=== PATIENT | female | born 1950 | race Caucasian/White ===

== ENCOUNTER 2016-11-12 06:10 | Day surgery (SDC) ==
[2016-11-12] MEDS ORDERED: LIDOCAINE 1% 20 ML MDV ID ONE (07:10)
[2016-11-12] MEDS ORDERED: LIDOCAINE 1% 20 ML MDV ONE (07:10)
[2016-11-12] MEDS ORDERED: DIPRIVAN 20 ML VIAL IVP ONE (08:20)
[2016-11-12] MEDS ORDERED: VERSED ONE (08:20)
[2016-11-12 10:20] VITALS: BP 130/69; TEMP 97.3
--- NOTE | 2016-11-12 14:45 | OP ---
INDICATIONS FOR PROCEDURE: 65-year-old female presents for first ever screening colonoscopy. MEDICATIONS: SEE ANESTHESIA NOTES. PROCEDURE: COLONOSCOPY, SNARE POLYPECTOMY. REPORT: The risks, benefits, alternatives and limitations were discussed in detail with the patient. Informed consent was obtained. After adequate sedation was achieved, a digital rectal exam revealed good tone, no masses. The colonoscope was introduced into the rectum and advanced under direct visual guidance to the cecum. The cecum was identified by the appendiceal orifice and IC valve. I then slowly withdrew the scope in a circumferential manner examining the mucosa quite carefully. I looked on the proximal and distal side of folds and flexures as best as possible. I was able to retroflex the scope in the right colon and left colon to increase visualization. At the mid ascending colon, there was a small 4 to 5 mm polyp that I removed by snare technique. This was not retrieved. In the proximal transverse area there was a 6 to 7 mm semi sessile polyp that I removed by snare technique. It was retrieved. There was mild to moderate diverticulosis scattered throughout the sigmoid area. In the rectum there is a 4 mm sessile polyp that I removed by snare technique. It was retrieved. No other abnormalities were noted including on retroflex view of the anal canal. The prep was good. The withdrawal time was 12 minutes and 10 seconds. The patient tolerated the procedure well with stable vital signs and pulse oximetry throughout. IMPRESSION: 1. THREE (3) POLYPS REMOVED. 2. DIVERTICULOSIS. RECOMMENDATIONS: 1. High fiber diet. 2. Office visit as needed. 3. Await pathology results. If there are adenomatous changes, I recommend repeat colonoscopy examination again in 3 years if she is clinically well. Otherwise, if there are no adenomatous changes, then suggest repeat colonoscopy examination again in 5 years if she is well; sooner if she would have any signs or symptoms to indicate otherwise. CC: DR. FORTINO RANGEL
== END 2016-11-12 09:55 | disposition home or self-care (01) ==
LOC: SURG 06:10
PROVIDERS: ATTEND Internal Medicine Gastroenterology
DX: Z12.11 Encounter for screening for malignant neoplasm of colon (principal); D12.3 Benign neoplasm of transverse colon; D12.7 Benign neoplasm of rectosigmoid junction; K63.5 Polyp of colon; K57.30 Diverticulosis of large intestine without perforation or abscess without bleeding

== ENCOUNTER 2016-12-26 12:53 | Outpatient (CLI) ==
--- NOTE | 2016-12-26 13:45 | CT ---
EXAM: CT chest without contrast HISTORY: Pulmonary nodule follow-up COMPARISON: The chest 06/26/2016 and multiple priors dating back to 03/06/2015 TECHNIQUE: Serial axial images of the chest were obtained from the lung apices to the upper abdomen without contrast. These were viewed in multiple planes. FINDINGS: The thyroid is normal. The visualized vessels demonstrate mild ascending aortic ectasia without aneurysm or stenosis. The heart is normal in size without pericardial effusion. There are no pathologically enlarged mediastinal or hilar lymph nodes. Calcified left hilar lymph nodes are pr esent. There is no pneumothorax or pleural effusion. The right upper lobe pulmonary nodule measuring 1 cm in diameter which is not significantly changed compared back to 12/06/2014. There is minimal left b asilar atelectasis. There is a calcified granuloma in the left lower lobe. No additional new conso lidation, nodule or mass is identified. The ground-glass and nodularity in the left lower lobe desc ribed on prior examination is in the region of previously described bronchiectasis likely representi ng chronic changes with no CT evidence of neoplasm. There is a small hiatal hernia. There is an exophytic low attenuation lesion of the left kidney not significantly changed since 2015. The osseous structures demonstrate degenerative disease. IMPRESSION: 1. Right upper lobe pulmonary nodule has been present since 2015 and is unchanged consistent with b enign nodule. 2. Ground-glass in the left lower lobe has not significantly changed in comparison to prior to CTs and an area of bronchiectasis with noted in this region on CT 12/06/2014. This likely represents ch ronic mucous plugging. No additional follow-up is indicated by imaging. 3. Stable ascending aortic ectasia. 4. Stable low attenuation lesion of the left kidney and small hiatal hernia, stable since 2014.
== END 2016-12-26 12:54 | disposition home or self-care (01) ==
LOC: RAD 12:53
PROVIDERS: ATTEND Internal Medicine Pulmonary Disease
DX: R91.1 Solitary pulmonary nodule (principal)

== ENCOUNTER 2017-03-25 16:05 | Outpatient (CLI) | payer OTHER ==
[2017-03-25 16:56] LABS: BASOPHILS # (AUTO) 0.1 K/uL (0-0.2); BASOPHILS % (AUTO) 0.5 % (0.0-3.0); EOSINOPHILS # (AUTO) 0.3 K/ul (0.0-0.7); EOSINOPHILS % (AUTO) 3.2 % (0.0-7.0); HEMATOCRIT 37.6 % (37.0-47.0); HEMOGLOBIN 11.9 g/dl (12.0-16.0); IMMATURE GRANULOCYTE % (AUTO) 0.5 % (0.0-5.0); LYMPHOCYTES # (AUTO) 3.5 K/uL (0.60-3.4); LYMPHOCYTES % (AUTO) 36.4 (10.0-50.0); MEAN CORPUSCULAR HEMOGLOBIN 26.2 pg (27.0-31.0); MEAN CORPUSCULAR HGB CONC 31.6 (31.8-35.4); MEAN CORPUSCULAR VOLUME 82.8 fl (81.0-99.0); MONOCYTES # (AUTO) 0.6 K/uL (0.4-2.0); MONOCYTES % (AUTO) 6.1 (0-10); NEUTROPHILS # (AUTO) 5.2 K/ul (2.0-6.9); NEUTROPHILS % (AUTO) 53.3; PLATELET COUNT 345 10^3/uL (140-440); RED BLOOD COUNT 4.54 10^6/ul (4.20-5.40); WHITE BLOOD COUNT 9.67 K/ul (4.6-10.2)
[2017-03-25 17:28] LABS: ALBUMIN 3.9 g/dL (3.4-5.0); ALBUMIN/GLOBULIN RATIO 1.18; BILIRUBIN,TOTAL 0.38 mg/dL (0.00-1.20); BUN/CREATININE RATIO 16.09; CALCIUM 9.7 mg/dL (8.2-10.2); CHOL/HDL RATIO 3.8 (4.5-5.5); CREATININE 0.87 mg/dL (0.60-1.30); TOTAL PROTEIN 7.2 g/dL (5.8-8.1)
== END 2017-03-25 16:06 | disposition home or self-care (01) ==
LOC: LAB 16:05
PROVIDERS: ATTEND Emergency Medicine
DX: I10 Essential (primary) hypertension (principal); J44.9 Chronic obstructive pulmonary disease, unspecified; E66.9 Obesity, unspecified
CPT/HCPCS: 36415; 80053; 80061; 84443; 85025

== ENCOUNTER 2017-10-15 13:19 | Outpatient (CLI) | END 2017-10-15 13:20 | disposition home or self-care (01) | LOC: LAB 13:19 | PROVIDERS: ATTEND Emergency Medicine | DX: I10 Essential (primary) hypertension (principal); J44.9 Chronic obstructive pulmonary disease, unspecified; E66.9 Obesity, unspecified | CPT/HCPCS: 36415; 80053; 80061; 84443; 85025 ==

== ENCOUNTER 2017-11-10 14:08 | Outpatient (CLI) | END 2017-11-10 14:09 | disposition home or self-care (01) | LOC: LAB 14:08 | PROVIDERS: ATTEND Emergency Medicine | DX: I10 Essential (primary) hypertension (principal); E66.9 Obesity, unspecified | CPT/HCPCS: 36415; 80053 ==

== ENCOUNTER 2018-04-23 12:03 | Outpatient (CLI) | payer OTHER ==
--- NOTE | 2018-04-23 12:34 | CT ---
EXAM: CT of the abdomen pelvis without contrast History: Left lower quadrant abdominal pain. Comparison: CT abdomen pelvis 02/06/2016 Technique: Multiplanar CT images through the abdomen pelvis were obtained without the administration of IV contrast Findings: New cluster of nodules seen within the left lower lobe. The largest measuring 1.1 cm. No acute osseous abnormalities. Severe degenerative disc disease at T10-T11. Moderate to severe degene rative disc disease within the lumbar spine. Calcified granulomas within the spleen. No discrete gallstones identified by CT. No focal liver les ions. Small to moderate hiatal hernia. No peripancreatic inflammation. Adrenal glands are unremark able. No change in the left renal cyst. No renal stones and no hydronephrosis. The appendix is not dilated or inflamed. There is an appendicolith versus old inspissated secretions. No bladder wall thickening. Bladder is low lying within the pelvis. Uterus is not seen. Colonic diverticulosis. T here is moderate inflammation seen adjacent to a short segment of the descending colon with associate d colonic wall thickening. No well-formed fluid collections identified. No free air. Impression: 1. Acute diverticulitis of the descending colon. No abscess and no free air. 2. Small to moderate hiatal hernia. 3. Simple left renal cyst. 4. New cluster of nodules in the left lower lobe could be infectious/inflammatory or neoplastic. Re commend follow-up chest CT in 3-6 months. 5. Other findings as detailed above.
[2018-04-23 16:50] VITALS: BMI 30.4
== END 2018-04-23 12:04 | disposition home or self-care (01) ==
LOC: RAD 12:03
PROVIDERS: ATTEND Emergency Medicine
DX: R10.32 Left lower quadrant pain (principal)
CPT/HCPCS: 36415; 80053; 85025

== ENCOUNTER 2018-04-23 15:40 | Inpatient (IN) ==
[2018-04-23] MEDS ORDERED: TYLENOL PO PRN (16:40)
[2018-04-23] MEDS ORDERED: ZOFRAN 4 MG/2 ML IVP PRN (16:42)
[2018-04-23] MEDS ORDERED: MORPHINE 2 MG/ML SYRINGE IVP PRN (16:42)
[2018-04-23 16:50] VITALS: BMI 30.4
[2018-04-23] MEDS: LOVENOX SUBCUT SCH (17:01)
[2018-04-23] MEDS: SODIUM CHLORIDE 1,000 ML IV SCH (17:39)
[2018-04-23] MEDS: ROCEPHIN 1 GM in SODIUM CHLORIDE 50 ML IV SCH (17:39)
[2018-04-23] MEDS: ALBUTEROL 0.042% NEB NEB SCH (18:00)
[2018-04-23] MEDS: FLAGYL 500 MG/100 ML 500 MG in PREMIX 100 ML NS 1 BAG IV SCH ×2 (18:27→22:19)
[2018-04-23] MEDS ORDERED: MAGNESIUM CITRATE 500 MG PO SCH (21:00)
[2018-04-23] MEDS: MAG-OX PO SCH (21:12)
[2018-04-23] MEDS: SYMBICORT 80-4.5 MCG INHALER IH SCH (21:13)
[2018-04-24] MEDS: FLAGYL 500 MG/100 ML 500 MG in PREMIX 100 ML NS 1 BAG IV SCH ×3 (04:49→20:38)
[2018-04-24] MEDS: ALBUTEROL 0.042% NEB NEB SCH ×2 (05:35→17:38)
[2018-04-24] MEDS: ROCEPHIN 1 GM in SODIUM CHLORIDE 50 ML IV SCH (08:56)
[2018-04-24] MEDS: SODIUM CHLORIDE 1,000 ML IV SCH ×2 (08:56)
[2018-04-24] MEDS: MAG-OX PO SCH ×2 (08:57→20:38)
[2018-04-24] MEDS: POTASSIUM GLUCONATE 99 MG PO SCH (08:58)
[2018-04-24] MEDS: LOVENOX SUBCUT SCH (08:58)
[2018-04-24] MEDS: SYMBICORT 80-4.5 MCG INHALER IH SCH ×2 (08:59→20:38)
[2018-04-24] MEDS: ZESTRIL PO SCH (08:59)
[2018-04-25] MEDS: FLAGYL 500 MG/100 ML 500 MG in PREMIX 100 ML NS 1 BAG IV SCH ×3 (04:14→22:10)
[2018-04-25] MEDS: SODIUM CHLORIDE 1,000 ML IV SCH ×2 (04:15→22:12)
[2018-04-25] MEDS: ALBUTEROL 0.042% NEB NEB SCH ×2 (05:08→17:31)
[2018-04-25] MEDS: LOVENOX SUBCUT SCH (08:54)
[2018-04-25] MEDS: MAG-OX PO SCH ×2 (08:55→22:10)
[2018-04-25] MEDS: POTASSIUM GLUCONATE 99 MG PO SCH (08:55)
[2018-04-25] MEDS: ROCEPHIN 1 GM in SODIUM CHLORIDE 50 ML IV SCH (08:55)
[2018-04-25] MEDS: ZESTRIL PO SCH (08:56)
[2018-04-25] MEDS: SYMBICORT 80-4.5 MCG INHALER IH SCH ×2 (08:56→22:12)
--- NOTE | 2018-04-25 10:24 | CT ---
EXAM: CT scan thorax without contrast HISTORY: Pain COMPARISON: CT scan thorax of 12/26/2016 FINDINGS: Contiguous axial images obtained from thoracic inlet through the hemidiaphragms without co ntrast utilizing 5-mm collimation. Sagittal and coronal reconstructions were imaged and reviewed.. The thoracic inlet is unremarkable. The ascending aorta is ectatic measuring 4.1 cm. The heart is n ormal in size without pericardial effusion. Calcified lymph nodes are seen within the left hilum.. There is a stable 10 mm nodule within the right upper lobe. Scarring is seen within the lingula.. T here is minimal atelectasis at the left lung base.. There is a hiatal hernia.. Bone windows reveal moderately severe degenerative changes within the lower thoracic spine. IMPRESSION: Ectatic ascending aorta. Benign granulomatous changes. Stable right upper lobe nodule. Stable scarring inferior lingular segment. Atelectasis left lung base.
--- NOTE | 2018-04-25 10:33 | CT ---
EXAM: CT scan abdomen pelvis without contrast HISTORY: Abdominal pain COMPARISON: CT scan abdomen pelvis 04/23/2018 FINDINGS: Contiguous axial images were obtained through the abdomen and pelvis without contrast util izing 3-mm collimation... Sagittal coronal reconstructions were imaged and reviewed.. There is mode rate sized hiatal hernia. There are benign granulomatous changes in the spleen. The liver pancreas a nd adrenal glands have normal unenhanced CT appearance. There is exophytic cyst upper pole left kidn ey. Right kidney is unremarkable.. The abdominal aorta is normal in course and caliber. Dense mate rial is seen within normal appendix. Persistent but improved diverticulitis is seen involving the aidan cending colon. There is no free fluid or abscess. Degenerative changes noted throughout the lumbar s pine.1 IMPRESSION: Persistent but improved diverticulitis involving the left colon.. Hiatal hernia.
[2018-04-26] MEDS: ALBUTEROL 0.042% NEB NEB SCH (05:15)
[2018-04-26] MEDS: FLAGYL 500 MG/100 ML 500 MG in PREMIX 100 ML NS 1 BAG IV SCH (05:23)
[2018-04-26] MEDS: SODIUM CHLORIDE 1,000 ML IV SCH (08:36)
[2018-04-26] MEDS: MAG-OX PO SCH (08:38)
[2018-04-26] MEDS: ROCEPHIN 1 GM in SODIUM CHLORIDE 50 ML IV SCH (08:38)
[2018-04-26] MEDS: LOVENOX SUBCUT SCH (08:42)
[2018-04-26] MEDS: SYMBICORT 80-4.5 MCG INHALER IH SCH (08:42)
[2018-04-26] MEDS: ZESTRIL PO SCH (08:43)
[2018-04-26] MEDS: POTASSIUM GLUCONATE 99 MG PO SCH (08:44)
[2018-04-26 10:01] VITALS: BP 121/77; TEMP 98.9
--- NOTE | 2018-04-26 11:54 | PCM.HOSP ---
- Initial Hospital Care [id number] 70 Minutes Bedside ([id number]): 04/23 - Subsequent Care [id number] 35 Minutes per Day ([id number]): 04/24. 04/25 - Hospital Discharge [id number] More than 30 Minutes ([id number]): 04/27
--- NOTE | 2018-04-28 11:26 | DS ---
DATE OF SERVICE: 04/26/18 FINAL DIAGNOSIS: 1. Acute descending colon 2. Diverticulitis 3. Leukocytosis 4. Anemia which is stable 5. History of hypertension 6. Asthma 7. Left lobar infiltrate per CAT scan 8. Osteoarthritis 9. Hysterectomy 10.Bilateral thumb joint replacements 11.Raynauds disease 12.Hypertension 13.COPD DISCHARGE INSTRUCTIONS: Discharge the patient home. Please continue to follow the soft diet for at least 3-4 days. Followup in the [facility] on . Continue the rest of the home medication. MEDICATIONS AT DISCHARGE: Lisinopril Albuterol Symbicort Mag Citrate Potassium Turmeric NEW PRESCRIPTIONS: Augmentin 875 Q 8 hours for 7 more days. Flagyl 500mg Q 8 hours for 7 more days. DIET INSTRUCTIONS: Diverticulitis diet been discussed. ACTIVITY: As tolerated DISEASE SPECIFIC EDUCATION: Diverticulitis and diet been discussed; no seeds and no nuts. Soft diet for one more week HOSPITAL COURSE: Marybeth Kramer was seen initially as outpatient as patient was having the left sided abdominal pain and left flank pain and fever. Outpatient blood work done which showed WBC of almost 13,000 and CAT scan showed the left descending colon and diverticulitis. At that time the patient was directly admitted to the hospital and started on put on NPO and started on the Flagyl and Rocephin and Demerol for the pain. Given treatment she tolerated well. Hgb was steady. Morphine was given for the pain. Lovenox was given for the DVT prophylaxis and IV fluids. Gradually the patient started feeling better and did not have any fever or chills. In review of the CAT scan findings we did do the CT chest which is stable scarring inferior lingular segment, atelectasis left lung base. Did not show any mass. CT of abdomen and pelvis did show better improvement of the left side descending colon, diverticulitis. The patient's diet been improved to the soft diet which she did tolerate well. She is has been up and about walking and did not have any problems. At that time the patient being discharged home today. TIME SPENT: MORE THAN 65 MINUTES MTDD
--- NOTE | 2018-04-28 11:36 | PN ---
DATE OF SERVICE: 04/24/18 SUBJECTIVE: The patient was admitted with acute descending diverticulitis. WBC is better from 12,000 to 8,000. Hgb dropped to 11.2. Sodium and potassium are normal. Pain is somewhat better, passing gas. REVIEW OF SYSTEMS: CONSTITUTIONAL: No fever, no chills. HEENT: Normal. ENDOCRINE: No weight gain, no weight loss. CVS: No angina symptoms. No CHF symptoms. No palpitations. No atypical chest pain for CAD. No shortness of breath. No PND, no orthopnea. RESPIRATORY: No cough, no hemoptysis. GI: No nausea, no vomiting. No abdominal pain. : No hematuria. No polyuria. MUSCULOSKELETAL: No joint swelling. PSYCHIATRIC: Not anxious. No depression. No suicidal thoughts. No homicidal thoughts. SKIN: Intact. No rash. PHYSICAL EXAMINATION: V/S: Blood pressure 135/91, respiratory rate 18, heart rate 72, temperature 97.9 with saturation 98% HEENT: Normocephalic, atraumatic. Mucosa dry. Pallor positive. No icterus. NECK: Supple. No JVD, no carotid bruit. No lymphadenopathy. LUNGS: Clear to auscultation. No rales or rhonchi. HEART: S1, S2 normal. No S3. No murmur, gallop or regurgitation. ABDOMEN: Soft, nontender. Bowel sounds sluggish. No rigidity. No rebound. No CVA tenderness. Left lower quadrant tenderness and guarding is present. EXTREMITIES: No cyanosis, clubbing or pedal edema. MUSCULOSKELETAL: No joint swelling. NEUROLOGIC: Awake, alert. No focal deficit. LYMPHATIC: No lymph nodes palpable. SKIN: Intact. LABS: Sodium 141, potassium 4.1, chloride 108, bicarb 24, BUN 12, creatinine 0.71, glucose 94.WBC 8.95, hgb 11.2, hct 36.5, plt count 268. ASSESSMENT: 1. Acute descending sigmoid diverticulitis 2. Anemia most likely from the hemodilution 3. Diverticulosis 4. Hysterectomy 5. Osteoarthritis PLAN: 1. Will get CT 2. Continue Rocephin and Flagyl 3. Breathing treatments 4. Morphine for the pain 5. IV fluids 6. Clear liquid diet 7. The patient's CAT scan did show left lower lobe infiltrate questionable for malignancy do the CAT scan once the diverticulitis is resolving. TIME SPENT: More than 35 minutes MTDD
--- NOTE | 2018-04-28 12:38 | PN ---
DATE OF SERVICE: 04/25/18 SUBJECTIVE: The patient was admitted with acute left sided descending colon diverticulitis with changes in the left lower lobe of the liver. The patient is not having any fever. Still has some abdominal pain and nausea. Able to keep the soft diet well. REVIEW OF SYSTEMS: CONSTITUTIONAL: No fever, no chills. HEENT: Normal. ENDOCRINE: No weight gain, no weight loss. CVS: No angina symptoms. No CHF symptoms. No palpitations. No atypical chest pain for CAD. No shortness of breath. No PND, no orthopnea. RESPIRATORY: No cough, no hemoptysis. GI: No nausea, no vomiting. No abdominal pain. : No hematuria. No polyuria. MUSCULOSKELETAL: No joint swelling. PSYCHIATRIC: Not anxious. No depression. No suicidal thoughts. No homicidal thoughts. SKIN: Intact. No rash. PHYSICAL EXAMINATION: V/S: Blood pressure 134/83, respiratory rate 16, heart rate 65, temperature 97.8 with saturation 97%. HEENT: Normocephalic, atraumatic. Mucosa dry. Pallor positive. No icterus. NECK: Supple. No JVD, no carotid bruit. No lymphadenopathy. LUNGS: Decreased and clear to auscultation. Basilar crackles on the left side. No rales or rhonchi. HEART: S1, S2 normal. No S3. No murmur, gallop or regurgitation. ABDOMEN: Soft, discomfort in the left lower quadrant and left flank area. Bowel sounds active. No rigidity. No rebound or guarding. No CVA tenderness. EXTREMITIES: No cyanosis, clubbing or pedal edema. MUSCULOSKELETAL: No joint swelling. NEUROLOGIC: Awake, alert. No focal deficit. LYMPHATIC: No lymph nodes palpable. SKIN: Intact. LABS: WBC 6.64, hgb 11.4, hct 36.4, plt count 275, sodium 141, potassium 4.1, chloride 108, bicarb 23, BUN 9, creatinine 0.74 and glucose 81. ASSESSMENT: 1. Acute diverticulitis of the descending colon. No abscess 2. Left lower lobe cluster nodule will further evaluate 3. Small to moderate hiatal hernia 4. Simple left renal cyst 5. Hemodilution 6. Anemia 7. Hypertension 8. Diverticulosis 9. Osteoarthritis PLAN: 1. Continue with IV fluids 2. Rocephin 3. Flagyl 4. Lovenox which patient is refusing 5. IV fluids 6. CT of the abdomen and pelvis and CT of the chest for left lower lobe infiltrate TIME SPENT: More than 35 minutes MTDD
== END 2018-04-26 12:32 | disposition home or self-care (01) | DRG 392 ==
LOC: MEDSURG B 15:40
PROVIDERS: ADMIT Emergency Medicine; ATTEND Emergency Medicine
DX: R10.32 Left lower quadrant pain (principal); D72.829 Elevated white blood cell count, unspecified; D64.9 Anemia, unspecified; I10 Essential (primary) hypertension; J45.909 Unspecified asthma, uncomplicated; J44.9 Chronic obstructive pulmonary disease, unspecified; I73.00 Raynaud's syndrome without gangrene; M19.90 Unspecified osteoarthritis, unspecified site
CPT/HCPCS: 36415; 80053; 81001; 85025; 87040; 87086

== ENCOUNTER 2018-10-30 07:40 | Outpatient (CLI) | payer OTHER ==
--- NOTE | 2018-10-30 12:42 | CT ---
EXAM: CT left humerus HISTORY: Upper arm pain. TECHNIQUE: CT left humerus without contrast. Multiplanar images provided. FINDINGS: No fracture is identified. There is mild osteoarthritis of the acromioclavicular and kaitlynn ohumeral joints. No joint subluxation, separation or dislocation. There is no joint effusion. The elbow joints are within normal limits. The muscular and subcutaneous tissues are normal. There is n o axillary mass or fluid collection. IMPRESSION: 1. Osteoarthritis. Otherwise within normal limits by CT. If concern is persistent, consider correl ation with MRI.
== END 2018-10-30 07:41 | disposition home or self-care (01) ==
LOC: RAD 07:40
PROVIDERS: ATTEND Nurse Practitioner Family
DX: M79.622 Pain in left upper arm (principal); S49.92XA Unspecified injury of left shoulder and upper arm, initial encounter

== ENCOUNTER 2018-11-30 07:07 | Emergency (ER) ==
[2018-11-30 07:13] VITALS: BP 129/81; TEMP 97.6; BMI 30.5
--- NOTE | 2018-11-30 07:32 | ED.PDOC ---
General ED Provider: Dr. CHIDI SHEPPARD MD Chief Complaint: Toe Pain/Injury Stated Complaint: [id number] lb bucket on toes Time Seen by Physician: 07:30 Mode of Arrival: Wheelchair Information Source: Patient Exam Limitations: No limitations Primary Care Provider: ROSITA GUAJARDO Nursing and Triage Documentation Reviewed and Agree: Yes Does patient meet sepsis criteria?: No If yes, has appropriate treatment been initiated?: Yes System Inflammatory Response Syndrome: Not Applicable Sepsis Protocol: For patient's 13 years and over: Temp is 96.8 and below OR 101 and greater Pulse >90 BPM Resp >20/minute Acutely Altered Mental Status Are patient's symptoms suggestive of a new infection, such as: -Pneumonia -Skin, Soft Tissue -Endocarditis -UTI -Bone, Joint Infection -Implantable Device -Acute Abdominal Infection -Wound Infection -Meningitis -Blood Stream Catheter Infection -Unknown Review of Systems - Review Of Systems Constitutional: Reports: No symptoms Eyes: Reports: No symptoms Ears, Nose, Mouth, Throat: Reports: No symptoms Respiratory: Reports: No symptoms Cardiac: Reports: No symptoms GI: Reports: No symptoms : Reports: No symptoms Musculoskeletal: Reports: Joint pain Skin: Reports: No symptoms Neurological: Reports: No symptoms Endocrine: Reports: No symptoms Hematologic/Lymphatic: Reports: No symptoms All Other Systems: Reviewed and Negative Past Medical History - Past Medical History Previously Healthy: Yes Endocrine: Reports: None Cardiovascular: Reports: None Respiratory: Reports: None Hematological: Reports: None Gastrointestinal: Reports: None Genitourinary: Reports: None Neuro/Psych: Reports: None Musculoskeletal: Reports: None Cancer: Reports: None Last Menstrual Period: n/a - Surgical History General Surgical History: Reports: None - Family History Family History: Reports: None - Social History Smoking Status: Former smoker Hx Substance Use: No Alcohol Screening: Occasionally Physical Exam - Physical Exam Appearance: Well-appearing, No pain distress, Well-nourished Ill-appearing: None Pain Distress: Moderate Eyes: BOBBI, EOMI, Conjunctiva clear ENT: Ears normal Neck: Supple Respiratory: Airway patent, Breath sounds clear, Breath sounds equal, Respirations nonlabored Cardiovascular: RRR GI/: Soft Musculoskeletal: No edema, Limited ROM (right 2nd toe) Skin: Warm, Dry, Normal color Neurological: Sensation intact, Motor intact, Reflexes intact, Cranial nerves intact, Alert, Oriented Psychiatric: Affect appropriate, Anxious Interpretation - Radiology Interpretation Radiology Results: Negative Critical Care Note - Critical Care Note Total Time (mins): 0 Course - Course Orders, Labs, Meds: Orders Category Date Time Status Ketorolac Tromethamine [Toradol] MEDS 11/30/18 07:32 Discontinued 60 mg IM ONCE STA TOE(S), RIGHT MIN 2V Stat RADS 11/30/18 07:32 Completed Medications Discontinued Medications Generic Name Dose Route Start Last Admin Trade Name Freq PRN Reason Stop Dose Admin Ketorolac Tromethamine 60 mg 11/30/18 07:32 11/30/18 07:43 Toradol IM 11/30/18 07:33 60 mg ONCE STA Administration Vital Signs: Temp Pulse Resp BP Pulse Ox 11/30/18 07:09 97.6 F 74 16 129/81 96 Departure - Departure Time of Disposition: 08:15 Disposition: HOME SELF-CARE Discharge Problem: Contusion of toe of right foot Instructions: Foot Contusion (ED) Condition: Good Pt referred to PMD for follow-up: Yes IPMP verified?: No Allergies/Adverse Reactions: Allergies No Known Allergies Allergy (Verified 11/30/18 07:13) Home Medications: Ambulatory Orders Albuterol Sulfate 0.042% Neb [Albuterol 0.042% Neb] 1 vial NEB RTBID 11/12/16 Albuterol Sulfate [Ventolin Hfa] 8 gm IH PRN PRN 11/12/16 Budesonide/Formoterol Fumarate [Symbicort 80-4.5 Mcg Inhaler] 2 puff IH BID 04/21 Magnesium Citrate 500 mg PO BID 01/19/18 Turmeric/Turmeric Root Extract [Turmeric 500 mg Capsule] 2 each PO BID 01/19/18 Potassium Gluconate [Potassium] 99 mg PO DAILY 04/23/18 Transfer Form Completed: No Disposition Discussed With: Patient
[2018-11-30] MEDS: TORADOL IM STA (07:43)
--- NOTE | 2018-11-30 07:56 | DI ---
Exam: Three views of the right toes. Comparison: None available. Reason for exam: Trauma. FINDINGS: No acute fracture or malalignment. The joint spaces appear well maintained. No unexplain ed calcific soft tissue density or radiopaque retained foreign body. Impression: No acute fracture or malalignment in the right toes.
== END 2018-11-30 08:33 | disposition home or self-care (01) ==
LOC: ED 07:07
DX: M25.571 Pain in right ankle and joints of right foot (principal); S90.121A Contusion of right lesser toe(s) without damage to nail, initial encounter
CPT/HCPCS: 96372; 99283

== ENCOUNTER 2019-03-16 10:51 | Outpatient (CLI) | END 2019-03-16 10:52 | disposition home or self-care (01) | LOC: RHC-LAB 10:51 | PROVIDERS: ATTEND Nurse Practitioner Family | DX: J02.9 Acute pharyngitis, unspecified (principal) | CPT/HCPCS: 87651 ==

== ENCOUNTER 2023-06-10 17:50 | Inpatient (IN) ==
--- NOTE | 2023-06-10 17:58 | ED.PDOC ---
General ED Provider: Dr. DANIELLE KEENE MD Chief Complaint: Abdominal Pain Stated Complaint: LLQ abdominal pain Time Seen by Provider: 06/10/23 17:57 Mode of Arrival: Walk-In Information Source: Patient Exam Limitations: No limitations Primary Care Provider: ROLO ERWIN APRN Nursing and Triage Documentation Reviewed and Agree: Yes GI Complaint Exam Abdominal Pain Complaint/Exam Onset: Gradual Duration: ~0600 Symptoms Are: Worse Timing: Constant Initial Severity: Mild Current Severity: Moderate Location of Pain: LLQ Character: Reports Sharp, Dull and Aching Aggravating: Reports Movement and Position (left lateral recumbent ) Alleviating: Reports Position (right lateral recumbent ) Associated Signs and Symptoms: Reports Fever and Diarrhea; Denies Diaphoresis, Cough, Chest pain, Dizziness, Back pain, Constipation, Blood in stool, Dysuria, Urinary frequency, Decreased urine output, Decreased appetite, Vaginal bleeding, Vaginal discharge, Nausea, Vomiting, Sore throat or Decreased activity Related History: Reports Similar episode (diverticulitis 2007, 2012, 2018) AAA Risk Factors: Reports Hypertension Cardiac Risk Factors: Reports Hypertension Ectopic Risk Factors: Reports None Ovarian Torsion Risk Factors: Reports None Surgical Obstruction Risk Factors: Reports None Related Surgical History: Reports None Female Body Picture: 1. Pain Differential Diagnoses: Bowel Obstruction, Constipation, Diverticulitis, Gastroenteritis, Irritable Bowel Syndrome, Renal Colic, Ureteral Stone, Ischemic Bowel, UTI, Ovarian Cyst and PID Review of Systems Review Of Systems Constitutional: Reports Fever GI: Reports Abdominal pain (LLQ) All Other Systems: Reviewed and Negative [facility] Medical History Annual physical exam Z00.00 - Encounter for general adult medical examination without abnormal findings (ICD-10) Arthritis M19.90 - Unspecified osteoarthritis, unspecified site (ICD-10) Cataract H26.9 - Unspecified cataract (ICD-10) Cough R05 - Cough (ICD-10) Dysuria R30.0 - Dysuria (ICD-10) Fever R50.9 - Fever, unspecified (ICD-10) Hyperlipidemia E78.5 - Hyperlipidemia, unspecified (ICD-10) Hypertension I10 - Essential (primary) hypertension (ICD-10) Oral pharyngeal candidiasis B37.0 - Candidal stomatitis (ICD-10) Pre-op evaluation Z01.818 - Encounter for other preprocedural examination (ICD-10) Urinary tract infection N39.0 - Urinary tract infection, site not specified (ICD-10) Weight gain R63.5 - Abnormal weight gain (ICD-10) Wellness examination Z00.00 - Encounter for general adult medical examination without abnormal findings (ICD-10) Family History Mother Hyperlipidemia Hypertension Grandfather/Grandmother Cardiac disease Cerebrovascular accident Other Thyroid disease Social History Smoking and tobacco status: Former smoker Quit date: 09/24/75 Tobacco: How many years used: 10 Passive smoking exposure: No Second hand smoke exposure: No Smoking risk assessment performed: No Alcohol intake: current Alcohol intake frequency: holidays/special occasions only Alcohol type: beer Counseling given: No Counseling provided: none Substance use type: does not use Counseling provided: none Beatrice/faith: SPIRITISM Special beatrice needs: No Agree to transfusion: No Adopted: No Caregiver/support person: Yes Foster care: Yes Household members: spouse and foster family Housing: house Marital status: M Lives independently: No Number of children: 6 Number of grandchildren: 14 Highest education level completed: some college, no degree Financial difficulty paying for basics: not very hard Current occupational status: retired 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, 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[employer], 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 Pets and animals: Yes (3 dogs, chickens) Leisure activites: volunteer work History of recent travel: No Sexually active: No Do you think of yourself as: straight/heterosexual Current gender identity: female Seatbelt use: always Drives intoxicated or rides with intoxicated shuttle driver: No Current diet type/program: regular Well-balanced diet: about half the time Caffeine: Yes Eating out: rarely or never Reads food labels: sometimes Water heater temperature set < 120 degrees: Yes Working smoke detector in home: Yes Fire extinguisher in home: Yes Carbon monoxide detector in home: Yes Firearms in home: No What type of physical activity do you participate in?: walking, bicycling and swimming Physical activity functional status: independent ambulation How many days of moderate to strenuous exercise, like a brisk walk, did you do in the last 7 days: 3 Surgical History Cataract extraction and insertion of intraocular lens History of right knee joint replacement Z96.651 - Presence of right artificial knee joint (ICD-10) History of tubal ligation Z98.51 - Tubal ligation status (ICD-10) Status post hysterectomy Z90.710 - Acquired absence of both cervix and uterus (ICD-10) Female Reproductive History Menstrual Age of Menarche: 12 Hx Hysterectomy: Yes Hx Tubal Ligation: No Physical Exam Physical Exam Appearance: Reports Ill-appearing and Well-nourished Ill-appearing: Moderate Pain Distress: Moderate Eyes: Reports BOBBI, EOMI and Conjunctiva clear ENT: Reports Ears normal and Nose normal Neck: Nonsupple (normal age-appropriate external appearance) Respiratory: Reports Airway patent, Breath sounds clear, Breath sounds equal and Respirations nonlabored Cardiovascular: Reports RRR GI/: Reports Soft, Tender (LLQ) and Bowel sounds hypoactive Musculoskeletal: Reports Normal strength and ROM intact Skin: Reports Warm, Dry and Normal color Neurological: Reports Sensation intact, Motor intact, Cranial nerves intact, Alert and Oriented Psychiatric: Reports Affect appropriate and Mood appropriate Critical Care Note Critical Care Note Total Critical Care Time (mins): 35 Course Course 06/11/23 04:59 06/11/23 04:59 Orders, Labs, Meds: Lab Review 06/10/23 06/10/23 18:15 21:28 WBC 16.52 H RBC 4.84 Hgb 12.2 Hct 39.7 MCV 82.0 MCH 25.2 L MCHC 30.7 L RDW Coeff of Opal 14.9 H Plt Count 314 Immature Gran % (Auto) 0.4 Neut % (Auto) 77.6 H Lymph % (Auto) 14.6 [place] % (Auto) 6.2 Eos % (Auto) 0.8 Baso % (Auto) 0.4 Neut # (Auto) 12.8 H Lymph # (Auto) 2.4 [place] # (Auto) 1.0 Eos # (Auto) 0.1 Baso # (Auto) 0.1 Immature Gran # (Auto) 0.1 Sodium 136.2 Potassium 3.90 Chloride 100.9 Carbon Dioxide 27.4 Anion Gap 11.80 BUN 17.0 Creatinine 0.88 Estimated GFR (MDRD) 63.00 BUN/Creatinine Ratio 19.31 Glucose 105.1 Lactic Acid 1.07 Calcium 10.00 Magnesium 1.92 Total Bilirubin 0.80 AST 30.6 ALT 27.2 Alkaline Phosphatase 111.9 Total Protein 7.97 Albumin 4.52 Globulin 3.45 Albumin/Globulin Ratio 1.31 Amylase 58.1 Lipase 56.7 Procalcitonin < 0.05 Urine Color Yellow Urine Clarity Clear Urine pH 6.0 Ur Specific [place] 1.010 Urine Protein Negative Urine Glucose (UA) Negative Urine Ketones Negative Urine Blood Trace-intact H Urine Nitrite Negative Urine Bilirubin Negative Urine Urobilinogen 0.2 Ur Leukocyte Esterase Negative Urine Microscopic RBC 0-2 Ur Squamous Epith Cells Not present Influ A Molecular Assay Negative by naat Influ B Molecular Assay Negative by naat SARS CoV-2 RNA Rapid ANNA Negative Orders Category Date Time Status ADMIT PATIENT INPATIENT .TO [facility] (MONITORED BED) ADMISSION 06/10/23 21:20 Active ACTIVITY .Up With Assistance CARE 06/10/23 21:20 Active GIVE HS SNACK 2100 CARE 06/10/23 21:20 Active INTAKE & OUTPUT Q8HR CARE 06/10/23 21:20 Active NPO REMINDER: IMAGING ONCE CARE 06/10/23 17:59 Completed TELEMETRY MONITORING TELE CARE 06/10/23 21:20 Active VITAL SIGNS Q4HR CARE 06/10/23 21:20 Active CLEAR LIQUID DIET DIETARY 06/11/23 Breakfast Ordered HS SNACK DIETARY 06/10/23 Dinner Ordered Saline Lock [ED IV/MEDIPORT/POWERPORT] .ONCE EMERGENCY 06/10/23 17:58 Active AMYLASE Stat LAB 06/10/23 18:15 Completed BLOOD CULTURE (ED ONLY) Stat LAB 06/10/23 18:15 Received CBC W/ AUTO DIFF DAILY@0600 LAB 06/11/23 04:59 Completed CBC W/ AUTO DIFF DAILY@0600 LAB 06/12/23 06:00 Ordered CBC W/ AUTO DIFF Stat LAB 06/10/23 18:15 Completed CMP [COMPREHENSIVE METABOLIC PANEL] Stat LAB 06/10/23 18:15 Completed COMPREHENSIVE METABOLIC PANEL DAILY@0600 LAB 06/11/23 04:59 Completed COMPREHENSIVE METABOLIC PANEL DAILY@0600 LAB 06/12/23 06:00 Ordered COVID [SARS COV-2 RNA RAPID ANNA] Stat LAB 06/10/23 18:15 Completed FLU A & B MOLECULAR [FLU A/B MOLECULAR] Stat LAB 06/10/23 18:15 Completed LACTIC ACID Stat LAB 06/10/23 18:15 Completed LIPASE Stat LAB 06/10/23 18:15 Completed MAGNESIUM Stat LAB 06/10/23 18:15 Completed PROCALCITONIN Stat LAB 06/10/23 18:15 Completed RAPID STREP SCREEN [MOLECULAR GROUP A STREP] Stat LAB 06/10/23 18:15 Completed UA [URINALYSIS C & S IF INDICATED] Stat LAB 06/10/23 21:28 Completed 0.9 % Sodium Chloride [Saline Flush] Meds 06/10/23 17:58 Active 1 syr IVF PRN PRN Acetaminophen Meds 06/10/23 18:07 Discontinued 1,000 mg in 100 ml IV ONCE Acetaminophen [Tylenol] Meds 06/10/23 21:20 Active 650 mg PO Q4H PRN Morphine Sulfate [Morphine 2 mg/ml Syringe] Meds 06/10/23 21:20 Active 2 mg IVP Q4HR PRN Ondansetron HCl/Pf [Zofran 4 mg/2 ml] Meds 06/10/23 21:20 Active 4 mg IVP Q6H PRN Piperacillin Sodium/Tazobactam [Zosyn 3.375 gm] 3.375 Meds 06/10/23 18:44 Discontinued gm 0.9 % Sodium Chloride [Sodium Chloride 100Ml] 100 ml IV ONCE Piperacillin Sodium/Tazobactam [Zosyn 3.375 gm] 3.375 Meds 06/11/23 01:00 Active gm 0.9 % Sodium Chloride [Sodium Chloride 100Ml] 100 ml IV Q6HR Ringers Lactated Solution [Lactated Ringers] 1,000 ml Meds 06/10/23 21:30 Active IV 100 mls/hr CT ABDOMEN/PELVIS W CONTRAST Stat RADS 06/10/23 17:58 Completed Medications Generic Name Dose Route Start Last Admin Trade Name Freq PRN Reason Stop Dose Admin Acetaminophen 650 mg 06/10/23 21:20 06/11/23 05:27 Acetaminophen 325 Mg Tablet PO 650 mg Q4H PRN Administration Mild Pain Piperacillin Sod/Tazobactam 100 mls @ 200 mls/hr 06/11/23 01:00 06/11/23 05:20 Sod 3.375 gm/ Sodium Chloride IV 06/14/23 00:59 200 mls/hr Q6HR JOAN Administration Lactated Ringer's 1,000 mls @ 100 mls/hr 06/10/23 21:30 06/10/23 21:51 Lactated Ringers IV 100 mls/hr .Q10H JOAN Administration Morphine Sulfate 2 mg 06/10/23 21:20 Morphine Sulfate 2 Mg/Ml Syringe IVP Q4HR PRN Abdominal Pain Ondansetron HCl 4 mg 06/10/23 21:20 Ondansetron Hcl/Pf 4 Mg/2 Ml Sdv IVP Q6H PRN Nausea / Vomiting Sodium Chloride 1 syr 06/10/23 17:58 06/10/23 19:03 0.9% Sodium Chloride 10 Ml Disp.Syrin IVF 1 syr PRN PRN Administration To flush IV Discontinued Medications Generic Name Dose Route Start Last Admin Trade Name Freq PRN Reason Stop Dose Admin Acetaminophen 1,000 mg in 100 mls @ 400 mls/hr 06/10/23 18:07 06/10/23 18:16 Acetaminophen IV 06/10/23 18:21 400 mls/hr ONCE ONE Administration Piperacillin Sod/Tazobactam 100 mls @ 200 mls/hr 06/10/23 18:44 06/10/23 19:02 Sod 3.375 gm/ Sodium Chloride IV 06/10/23 19:13 200 mls/hr ONCE ONE Administration Vital Signs: Temp Pulse Resp BP Pulse Ox O2 Flow Rate 06/10/23 21:30 98.3 F 81 18 118/78 96 2 06/10/23 19:10 98.3 F 83 18 106/67 97 06/10/23 17:54 101 F H 102 H 20 137/91 H 96 Patient presents with LLQ abdominal pain since awakening at ~0600. She has a h/o diverticulosis with 3 episodes of diverticulitis requiring hospitalization. The last episode was in 2018, she spent 4 days inpatient here at that time. labs posted, significant for leukocytosis (16.52) with a left shift (Segs 77.6%, absolute 12.8). She was given IV Zosyn to address. CT reported 'Colitis and diverticulitis of the descending colon. Chronic tree in bud alveolar densities in the left lower lobe. Minimal diffuse hepatic steatosis. ASCVD'. I spoke with the Hospitalist EDI SPECIALIST, Alicia, who accepted as a full admit. She was in sta ble condition when transferred to the medical floor. Discharge Plan Discharge Patient Disposition: ADMITTED INPATIENT Discharge Problem: Abdominal pain, Diverticulitis of descending colon Did you review [place] [employer]PER[employer]OR for ALL controlled substances?: Not Applicable ED Provider: DANIELLE KEENE Condition: Stable Physician Progress Note: []
[2023-06-10] MEDS ORDERED: ACETAMINOPHEN 1,000 MG/100 ML BAG IV ONE (18:07)
[2023-06-10 18:21] LABS: BASOPHILS # (AUTO) 0.1 K/uL (0-0.2); BASOPHILS % (AUTO) 0.4 % (0.0-3.0); EOSINOPHILS # (AUTO) 0.1 K/ul (0.0-0.7); EOSINOPHILS % (AUTO) 0.8 % (0.0-7.0); HEMATOCRIT 39.7 % (37.0-47.0); HEMOGLOBIN 12.2 g/dl (12.0-16.0); IMMATURE GRANULOCYTE # (AUTO) 0.1 (0.0-1.0); IMMATURE GRANULOCYTE % (AUTO) 0.4 % (0.0-5.0); LYMPHOCYTES # (AUTO) 2.4 K/uL (0.60-3.4); LYMPHOCYTES % (AUTO) 14.6 (10.0-50.0); MEAN CORPUSCULAR HEMOGLOBIN 25.2 pg (27.0-31.0); MEAN CORPUSCULAR HGB CONC 30.7 (31.8-35.4); MONOCYTES % (AUTO) 6.2 (0-10); NEUTROPHILS # (AUTO) 12.8 K/ul (2.0-6.9); NEUTROPHILS % (AUTO) 77.6 % (42.2-75.2); PLATELET COUNT 314 10^3/uL (140-440); RDW COEFFICIENT OF VARIATION 14.9 % (11.6-14.8); RED BLOOD COUNT 4.84 10^6/ul (4.20-5.40); WHITE BLOOD COUNT 16.52 K/ul (4.6-10.2)
[2023-06-10 18:33] LABS: AMYLASE 58.1 U/L (30-110); LIPASE 56.7 U/L (23-300)
[2023-06-10 18:35] LABS: ALANINE AMINOTRANSFERASE 27.2 U/L (0-35); ALBUMIN 4.52 g/dL (3.5-5.0); ALKALINE PHOSPHATASE 111.9 U/L (53-141); ASPARTATE AMINO TRANSFERASE 30.6 U/L (14-36); BILIRUBIN,TOTAL 0.8 mg/dL (0.2-1.3); CARBON DIOXIDE 27.4 mmol/L (22-30.0); CHLORIDE 100.9 mmol/L (98-107); CREATININE 0.88 mg/dL (0.60-1.30); GLUCOSE 105.1 mg/dL (74-106); MAGNESIUM 1.92 mg/dL (1.6-2.3); POTASSIUM 3.9 mmol/L (3.5-5.1); SODIUM 136.2 mmol/L (134.5-145); TOTAL PROTEIN 7.97 g/dL (6.3-8.2)
[2023-06-10 18:38] LABS: SARS COV-2 RNA RAPID NAAT NEGATIVE (NEGATIVE)
[2023-06-10 18:41] LABS: MOLECULAR FLU A NEGATIVE BY NAAT (NEGATIVE); MOLECULAR FLU B NEGATIVE BY NAAT (NEGATIVE)
[2023-06-10] MEDS ORDERED: ZOSYN 3.375 GM 3.375 GM in SODIUM CHLORIDE 100ML 100 ML IV ONE (18:44)
--- NOTE | 2023-06-10 19:40 | CT ---
EXAM: CT ABDOMEN/PELVIS WITH CONTRAST HISTORY: Left lower quadrant abdominal pain with history of diverticulitis COMPARISON: CT abdomen/pelvis from 04/25/2018 TECHNIQUE: Multi-slice postcontrast transaxial helical images are acquired through the abdomen and p pily with coronal and sagittal reconstructed images. All CT scans are performed using dose optimi zation techniques as appropriate to the performed exam and includes at least one of the following: A utomated exposure control, adjustment of the mA and/or kV according to size, and the use of iterative reconstruction technique. CONTRAST: None. FINDINGS: Lung bases: There are chronic tree in bud alveolar densities in the left lower lobe. The dependent lungs are atelectatic. A moderate hiatus hernia is noted. Liver: The hepatic attenuation is minimally low diffusely relative to the spleen. Gallbladder/bilary tree: Normal. Pancreas: Normal. Adrenal glands: Normal. Spleen: Normal. Kidneys: A simple acquired left renal cyst is noted. The kidneys are otherwise normal. No hydroure teronephrosis. Retroperitoneum: The aorta is atherosclerotic. No retroperitoneal lymphadenopathy or hematomas. Peritoneum: Normal. Bowel: Diverticula arise from large bowel. There is mucosal prominence and fat stranding adjacent t o the descending colon. No drainable fluid collections or free air are associated. The appendix is normal. No intestinal distension. Pelvis: The uterus is surgically absent and there are no adnexal masses. The nonopacified bladder i s normal. Addominal wall/bones: No suspicious bone lesions or acute osseous abnormalities. No significant bod y wall hernias. IMPRESSION: - Colitis and diverticulitis of the descending colon. - Chronic tree in bud alveolar densities in the left lower lobe. - Minimal diffuse hepatic steatosis. - ASCVD. . All CT scans are performed using dose optimization techniques as appropriate to the performed exam an d include at least one of the following: Automated exposure control, adjustment of the mA and/or kV according t o size, and the use of iterative reconstruction technique.
[2023-06-10] MEDS ORDERED: ZOFRAN 4 MG/2 ML IVP PRN (21:20)
[2023-06-10] MEDS ORDERED: MORPHINE 2 MG/ML SYRINGE IVP PRN (21:20)
[2023-06-10 21:46] LABS: BILIRUBIN,URINE Negative (NEGATIVE); CLARITY,URINE Clear (CLEAR); COLOR,URINE Yellow (YELLOW); GLUCOSE, URINE (UA) Negative (NEGATIVE); KETONES,URINE Negative (NEGATIVE); LEUKOCYTE ESTERASE ,URINE Negative (NEGATIVE); NITRITE,URINE Negative (NEGATIVE); PROTEIN,URINE Negative (NEGATIVE); URINE, BLOOD Trace-intact (NEGATIVE); UROBILINOGEN,URINE 0.2 (0.2)
[2023-06-10] MEDS: LACTATED RINGERS 1,000 ML IV SCH (21:51)
[2023-06-10 22:00] LABS: SQUAMOUS EPITHELIAL CELL,UR NOT PRESENT (0-5)
[2023-06-10 22:03] LABS: URINE RBC, MICROSCOPIC 0-2 (0-2)
[2023-06-10 23:03] VITALS: BMI 35.2
[2023-06-11] MEDS: ZOSYN 3.375 GM 3.375 GM in SODIUM CHLORIDE 100ML 100 ML IV SCH ×5 (00:20→23:12)
[2023-06-11 05:15] LABS: BASOPHILS # (AUTO) 0.1 K/uL (0-0.2); BASOPHILS % (AUTO) 0.5 % (0.0-3.0); EOSINOPHILS # (AUTO) 0.2 K/ul (0.0-0.7); EOSINOPHILS % (AUTO) 1.8 % (0.0-7.0); HEMOGLOBIN 11.2 g/dl (12.0-16.0); IMMATURE GRANULOCYTE % (AUTO) 0.4 % (0.0-5.0); LYMPHOCYTES # (AUTO) 2.2 K/uL (0.60-3.4); LYMPHOCYTES % (AUTO) 20.1 (10.0-50.0); MEAN CORPUSCULAR HEMOGLOBIN 25.2 pg (27.0-31.0); MEAN CORPUSCULAR HGB CONC 30.3 (31.8-35.4); MEAN CORPUSCULAR VOLUME 83.1 fl (81.0-99.0); MONOCYTES # (AUTO) 0.9 K/uL (0.4-2.0); MONOCYTES % (AUTO) 8.4 (0-10); NEUTROPHILS # (AUTO) 7.4 K/ul (2.0-6.9); NEUTROPHILS % (AUTO) 68.8 % (42.2-75.2); PLATELET COUNT 281 10^3/uL (140-440); RDW COEFFICIENT OF VARIATION 14.9 % (11.6-14.8); RED BLOOD COUNT 4.45 10^6/ul (4.20-5.40); WHITE BLOOD COUNT 10.73 K/ul (4.6-10.2)
[2023-06-11 05:24] LABS: ALANINE AMINOTRANSFERASE 23.6 U/L (0-35); ALBUMIN 3.97 g/dL (3.5-5.0); ALKALINE PHOSPHATASE 90.6 U/L (53-141); ASPARTATE AMINO TRANSFERASE 26.6 U/L (14-36); BILIRUBIN,TOTAL 0.93 mg/dL (0.2-1.3); BLOOD UREA NITROGEN 13.5 mg/dL (7-17); CALCIUM 9.52 mg/dL (8.4-10.2); CARBON DIOXIDE 32.3 mmol/L (22-30.0); CHLORIDE 103.8 mmol/L (98-107); CREATININE 0.96 mg/dL (0.60-1.30); GLUCOSE 112.4 mg/dL (74-106); POTASSIUM 4.3 mmol/L (3.5-5.1); SODIUM 138.9 mmol/L (134.5-145); TOTAL PROTEIN 7.01 g/dL (6.3-8.2)
[2023-06-11] MEDS: TYLENOL PO PRN ×2 (05:27→12:49)
[2023-06-11] MEDS: LACTATED RINGERS 1,000 ML IV SCH (09:28)
[2023-06-11] MEDS ORDERED: ALBUTEROL 0.083% NEB NEB PRN (09:40)
[2023-06-11] MEDS: PROTONIX PO SCH (10:16)
[2023-06-11] MEDS: CARAFATE PO SCH ×3 (10:16→20:38)
--- NOTE | 2023-06-11 10:21 | PCM ---
Date of Service Date Seen by Provider: 06/11/23 Time Seen by Provider: 08:40 Admit Day/Time Admission Date: 06/10/23 Admission Time: 21:20 Reason for Admission Chief Complaint: DIVERTICULITIS Hospital Provider Hospital Provider: EMERSON IQBAL PA-C, [facility] [place] Primary Care Physician Primary Care Physician: ROLO ERWIN APRN History of Present Illness History of Present Illness: Patient is a 72 year old female with pmhx of hypertension, Sanchez's esophagus, COPD, HLD, h/o throacic ascending aneurysm who presented to the ER from home with cc of LLQ pain and fever. She's had diverticulitis mulitiple times in the past. She's had LLQ pain for the past few days, felt very weak, nausea, and diarrhea. No blood in stool. Last colonoscopy was last year and normal except for some noncancerous polyps, per patient. In the ER she was found to have 101T, wbc count 16, and CT abd/pelvis showed diverticulitis/colitis of descending colon. She was given zosyn. Pt was also started on fluids. On my evaluation this morning she is feeling better, tolerating clear liquids. She is still having LLQ pain, improved with tylenol. Case Discussed With Case Discussed With: Patient's case was discussed with the ER Physicians, Dr. Ellsworth. [facility] Medical History Annual physical exam Z00.00 - Encounter for general adult medical examination without abnormal findings (ICD-10) Arthritis M19.90 - Unspecified osteoarthritis, unspecified site (ICD-10) Cataract H26.9 - Unspecified cataract (ICD-10) Cough R05 - Cough (ICD-10) Dysuria R30.0 - Dysuria (ICD-10) Fever R50.9 - Fever, unspecified (ICD-10) Hyperlipidemia E78.5 - Hyperlipidemia, unspecified (ICD-10) Hypertension I10 - Essential (primary) hypertension (ICD-10) Oral pharyngeal candidiasis B37.0 - Candidal stomatitis (ICD-10) Pre-op evaluation Z01.818 - Encounter for other preprocedural examination (ICD-10) Urinary tract infection N39.0 - Urinary tract infection, site not specified (ICD-10) Weight gain R63.5 - Abnormal weight gain (ICD-10) Wellness examination Z00.00 - Encounter for general adult medical examination without abnormal findings (ICD-10) Surgical History Cataract extraction and insertion of intraocular lens History of right knee joint replacement Z96.651 - Presence of right artificial knee joint (ICD-10) History of tubal ligation Z98.51 - Tubal ligation status (ICD-10) Status post hysterectomy Z90.710 - Acquired absence of both cervix and uterus (ICD-10) Family History Mother Hyperlipidemia Hypertension Grandfather/Grandmother Cardiac disease Cerebrovascular accident Other Thyroid disease Social History Smoking and tobacco status: Former smoker Quit date: 09/24/75 Tobacco: How many years used: 10 Passive smoking exposure: No Second hand smoke exposure: No Smoking risk assessment performed: No Alcohol intake: current Alcohol intake frequency: holidays/special occasions only Alcohol type: beer Counseling given: No Counseling provided: none Substance use type: does not use Counseling provided: none Beatrice/roman catholic: [employer] Special beatrice needs: No Agree to transfusion: No Adopted: No Caregiver/support person: Yes Foster care: Yes Household members: spouse and foster family Housing: house Marital status: M Lives independently: No Number of children: 6 Number of grandchildren: 14 Highest education level completed: some college, no degree Financial difficulty paying for basics: not very hard Current occupational status: retired 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, 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[employer], 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 Pets and animals: Yes (3 dogs, chickens) Leisure activites: volunteer work History of recent travel: No Sexually active: No Do you think of yourself as: straight/heterosexual Current gender identity: female Seatbelt use: always Drives intoxicated or rides with intoxicated local driver: No Current diet type/program: regular Well-balanced diet: about half the time Caffeine: Yes Eating out: rarely or never Reads food labels: sometimes Water heater temperature set < 120 degrees: Yes Working smoke detector in home: Yes Fire extinguisher in home: Yes Carbon monoxide detector in home: Yes Firearms in home: No What type of physical activity do you participate in?: walking, bicycling and swimming Physical activity functional status: independent ambulation How many days of moderate to strenuous exercise, like a brisk walk, did you do in the last 7 days: 3 Allergies Allergies Allergy/AdvReac Type Severity Reaction Status Date / Time cat dander AdvReac Severe Cough Verified 06/10/23 22:47 rabbit dander AdvReac Verified 06/10/23 22:47 Current Medications Home Medications vitamin B complex 1 tab PO QDAY 01/11/22 [History Confirmed 06/10/23 Last Taken Unknown] albuterol sulfate 2.5 mg/3 mL (0.083 %) solution for nebulization 2.5 mg (3 mL) inhalation Q4-6H PRN shortness of breath or wheezing #90 mL 10/30/22 [Rx Confirmed 06/10/23 Last Taken Unknown] pantoprazole 40 mg tablet,delayed release (Protonix) 40 mg PO QDAY #30 tabs 10/30/22 [Rx Confirmed 06/10/23 Last Taken Unknown] sucralfate 100 mg/mL oral suspension (Carafate) 10 ml PO QID #1,000 mL 10/30/22 [Rx Confirmed 06/10/23 Last Taken Unknown] albuterol sulfate 90 mcg/actuation aerosol inhaler (Ventolin HFA) 2 puff inhalation Q4-6H PRN shortness of breath or wheezing #8.5 grams 05/21/23 [Rx Confirmed 06/10/23 Last Taken Unknown] budesonide-formoterol HFA 160 mcg-4.5 mcg/actuation aerosol inhaler (Symbicort) 2 puff inhalation Q12H #10.2 grams 05/21/23 [Rx Confirmed 06/10/23 Last Taken Unknown] lisinopril 20 mg tablet 20 mg PO BID 90 days #180 tabs 05/21/23 [Rx Confirmed 06/10/23 Last Taken Unknown] amlodipine 5 mg tablet See Rx Instructions .Route .COMPLEX #90 tabs 05/22/23 [Rx Confirmed 06/10/23 Last Taken Unknown] Home Acetaminophen (Acetaminophen 325 Mg Tablet) 650 mg PO Q4H PRN PRN Reason: Mild Pain Last Admin: 06/11/23 12:49 Dose: 650 mg Albuterol Sulfate (Albuterol Sulfate 0.083% Vial.Neb) 2.5 mg NEB Q4-6H PRN PRN Reason: dyspnea Amlodipine Besylate (Amlodipine Besylate 5 Mg Tablet) 5 mg PO DAILY [facility] Last Admin: 06/11/23 10:24 Dose: Not Given Budesonide/Formoterol Fumarate (Budesonide/Formoterol Fumarate 160/4.5 Mcg Inh aler) 2 puff IH Q12HR [facility] Last Admin: 06/11/23 10:24 Dose: Not Given Enoxaparin Sodium (Enoxaparin Sodium 40 Mg/0.4 Ml Syr) 40 mg SUBCUT DAILY [facility] Last Admin: 06/11/23 11:02 Dose: Not Given Piperacillin Sod/Tazobactam (Sod 3.375 gm/ Sodium Chloride) 100 mls @ 200 mls/hr IV Q6HR [facility] Stop: 06/14/23 11:59 Last Admin: 06/11/23 11:17 Dose: 200 mls/hr Lisinopril (Lisinopril 10 Mg Tablet) 20 mg PO BID [facility] Last Admin: 06/11/23 10:24 Dose: Not Given Morphine Sulfate (Morphine Sulfate 2 Mg/Ml Syringe) 2 mg IVP Q4HR PRN PRN Reason: Abdominal Pain Ondansetron HCl (Ondansetron Hcl/Pf 4 Mg/2 Ml Sdv) 4 mg IVP Q6H PRN PRN Reason: Nausea / Vomiting Pantoprazole Sodium (Pantoprazole Sodium 40 Mg Tablet.Dr) 40 mg PO DAILY@0600 [facility] Last Admin: 06/11/23 10:16 Dose: 40 mg Sodium Chloride (0.9% Sodium Chloride 10 Ml Disp.Syrin) 1 syr IVF PRN PRN PRN Reason: To flush IV Last Admin: 06/10/23 19:03 Dose: 1 syr Sodium Chloride (0.9% Sodium Chloride 10 Ml Disp.Syrin) 1 syr IVF Q8HR [facility] Sucralfate (Sucralfate Susp 1 Gm/10 Ml Cup) 1 gm PO 0600,1100,1700,2100 [facility] Last Admin: 06/11/23 10:16 Dose: 1 gm Discontinued Medications Acetaminophen (Acetaminophen) 1,000 mg in 100 mls @ 400 mls/hr IV ONCE ONE Stop: 06/10/23 18:21 Last Admin: 06/10/23 18:16 Dose: 400 mls/hr Piperacillin Sod/Tazobactam (Sod 3.375 gm/ Sodium Chloride) 100 mls @ 200 mls/hr IV ONCE ONE Stop: 06/10/23 19:13 Last Admin: 06/10/23 19:02 Dose: 200 mls/hr Piperacillin Sod/Tazobactam (Sod 3.375 gm/ Sodium Chloride) 100 mls @ 200 mls/hr IV Q6HR [facility] Stop: 06/14/23 00:59 Last Admin: 06/11/23 05:20 Dose: 200 mls/hr Lactated Ringer's (Lactated Ringers) 1,000 mls @ 100 mls/hr IV .Q10H [facility] Last Admin: 06/11/23 09:28 Dose: Not Given Review of Systems Constitutional: Reports Fever, Fatigue and Weakness Head: Reports Normocephalic and Atraumatic Throat: Denies Difficulty Swallowing Cardiovascular: Denies Chest pain or Chest Pressure Respiratory: Denies Cough or Shortness of air Gastrointestinal: Reports Nausea, Diarrhea and Abdominal pain; Denies Vomiting, Black Tarry Stools or Melena Genitourinary: Denies Dysuria or Frequency Neurological: Reports Weakness; Denies Headache or Dizziness Physical examination Most Recent Vital Signs: Most Recent Vital Signs Temperature 98.3 F 06/11/23 05:07 Temperature Source Oral 06/11/23 05:07 Temperature Source Oral 06/10/23 21:30 Pulse Rate 72 06/11/23 07:59 Respiratory Rate 16 06/11/23 07:59 Blood Pressure 111/72 06/11/23 05:07 Blood Pressure Mean 85 06/11/23 05:07 Blood Pressure Right Arm 140/79 06/10/23 22:38 Blood Pressure Location Left Arm 06/11/23 05:07 Blood Pressure Position Supine 06/11/23 02:00 O2 Sat by Pulse Oximetry 98 06/11/23 05:07 Oxygen Delivery Method Room Air 06/11/23 07:59 Oxygen Flow Rate 2 06/10/23 21:30 Height 5 ft 7 in 06/10/23 22:38 Weight 225 lb 06/10/23 22:38 Telemetry Type Remote Telemetry 06/11/23 07:00 Telemetry Monitoring Continues 06/11/23 07:00 Telemetry Heart Rate 75 06/11/23 07:00 EKG DC Interval 0.20 06/11/23 07:00 EKG QRS Interval 0.06 06/11/23 07:00 EKG QT Interval 0.38 06/11/23 01:00 Telemetry Strip Reading NSR 06/11/23 07:00 Appearance: Positive Well-appearing, Well-nourished, No Apparent Distress and Alert and Oriented x3 Skin: Positive [place], Warm and Good Turgor; Negative Rashes HEENT: Positive Normocephalic and Atraumatic Chest/Lungs: Positive Clear to Auscultation Bilaterally; Negative Rales, Rhonci or Wheezes Heart: Positive RRR and Murmur GI/: Positive Soft, Bowel Sounds Normal, No Distention and Tender (LLQ); Negative Nontender Extremities: Negative Edema Neurological: Positive Cranial Nerves Intact, Alert, Oriented and Other (+generalized weakness ) Psychiatric: Positive Oriented x4, Appropriate Mood and Appropriate Affect Labs This Visit Labs This Visit: Labs This Visit 06/10/23 06/10/23 06/11/23 18:15 21:28 04:59 WBC 16.52 H 10.73 H D RBC 4.84 4.45 Hgb 12.2 11.2 L Hct 39.7 37.0 MCV 82.0 83.1 MCH 25.2 L 25.2 L MCHC 30.7 L 30.3 L RDW Coeff of Opal 14.9 H 14.9 H Plt Count 314 281 Immature Gran % (Auto) 0.4 0.4 Neut % (Auto) 77.6 H 68.8 Lymph % (Auto) 14.6 20.1 [place] % (Auto) 6.2 8.4 Eos % (Auto) 0.8 1.8 Baso % (Auto) 0.4 0.5 Neut # (Auto) 12.8 H 7.4 H Lymph # (Auto) 2.4 2.2 [place] # (Auto) 1.0 0.9 Eos # (Auto) 0.1 0.2 Baso # (Auto) 0.1 0.1 Immature Gran # (Auto) 0.1 0.0 Sodium 136.2 138.9 Potassium 3.90 4.30 Chloride 100.9 103.8 Carbon Dioxide 27.4 32.3 H Anion Gap 11.80 7.10 BUN 17.0 13.5 Creatinine 0.88 0.96 Estimated GFR (MDRD) 63.00 57.00 BUN/Creatinine Ratio 19.31 14.06 Glucose 105.1 112.4 H Lactic Acid 1.07 Calcium 10.00 9.52 Magnesium 1.92 Total Bilirubin 0.80 0.93 AST 30.6 26.6 ALT 27.2 23.6 Alkaline Phosphatase 111.9 90.6 Total Protein 7.97 7.01 Albumin 4.52 3.97 Globulin 3.45 3.04 Albumin/Globulin Ratio 1.31 1.30 Amylase 58.1 Lipase 56.7 Procalcitonin < 0.05 Urine Color Yellow Urine Clarity Clear Urine pH 6.0 Ur Specific [place] 1.010 Urine Protein Negative Urine Glucose (UA) Negative Urine Ketones Negative Urine Blood Trace-intact H Urine Nitrite Negative Urine Bilirubin Negative Urine Urobilinogen 0.2 Ur Leukocyte Esterase Negative Urine Microscopic RBC 0-2 Ur Squamous Epith Cells Not present Influ A Molecular Assay Negative by naat Influ B Molecular Assay Negative by naat SARS CoV-2 RNA Rapid ANNA Negative Microbiology This Visit 06/10/23 18:15 Throat Group A Strep Molecular Assay - Final Imaging Imaging: EXAM: CT ABDOMEN/PELVIS WITH CONTRAST HISTORY: Left lower quadrant abdominal pain with history of diverticulitis COMPARISON: CT abdomen/pelvis from 04/25/2018 TECHNIQUE: Multi-slice postcontrast transaxial helical images are acquired through the abdomen and pelvis with coronal and sagittal reconstructed images. All CT scans are performed using dose optimization techniques as appropriate to the performed exam and includes at least one of the following: Automated exposure control, adjustment of the mA and/or kV according to size, and the use of iterative reconstruction technique. CONTRAST: None. FINDINGS: Lung bases: There are chronic tree in bud alveolar densities in the left lower lobe. The dependent lungs are atelectatic. A moderate hiatus hernia is noted. Liver: The hepatic attenuation is minimally low diffusely relative to the spleen. Gallbladder/bilary tree: Normal. Pancreas: Normal. Adrenal glands: Normal. Spleen: Normal. Kidneys: A simple acquired left renal cyst is noted. The kidneys are otherwise normal. No hydroureteronephrosis. Retroperitoneum: The aorta is atherosclerotic. No retroperitoneal lymphadenopathy or hematomas. Peritoneum: Normal. Bowel: Diverticula arise from large bowel. There is mucosal prominence and fat stranding adjacent to the descending colon. No drainable fluid collections or free air are associated. The appendix is normal. No intestinal distension. Pelvis: The uterus is surgically absent and there are no adnexal masses. The nonopacified bladder is normal. Addominal wall/bones: No suspicious bone lesions or acute osseous abnormalities. No significant body wall hernias. IMPRESSION: - Colitis and diverticulitis of the descending colon. - Chronic tree in bud alveolar densities in the left lower lobe. - Minimal diffuse hepatic steatosis. - ASCVD. Review Statement Review Statement: I have independently reviewed and interpreted the labs/EKGs/imaging that were ordered by the ER provider. I have reviewed all outside records that are available currently in our EMR including imaging/notes/labs from previous visits. Plan Plan: 1. Acute diverticulitis of descending colon - Cont zosyn. Stop fluids. Tylenol or morphine prn for pain. Zofran prn for nausea. May progress diet as tolerated. Last colonoscopy 1 yr ago normal. Pt states she's been told she has a "prolapsed" area in her colon and wonders if this is contributing. Unable to find any records indicating this. 2. Hypertension - Continue home meds 3. COPD - Continue home inhalers 4. Barretts esophagus - Continue home meds DVT Prophylaxis: Lovenox Time Spent: Greater than 80 minutes spent with patient, 50% of the time spent with this patient was devoted to counseling and coordination of care. [facility]annin minutes spent discussing advance care planning. FULL CODE Admit to: Inpatient Discussed Plan of Care with Dr. Charity Suarez. Medications Medication Orders: Medications Ordered Category Date Time Status 0.9 % Sodium Chloride [Saline Flush] Meds 06/10/23 17:58 Active 1 syr IVF PRN PRN Acetaminophen [Tylenol] Meds 06/10/23 21:20 Active 650 mg PO Q4H PRN Albuterol Sulfate 0.083% Neb [Albuterol 0.083% Neb] Meds 06/11/23 09:40 Ordered 2.5 mg NEB Q4-6H PRN Amlodipine Besylate [Norvasc] Meds 06/11/23 10:00 Ordered See Dose Instructions PO .COMPLEX Budesonide/Formoterol Fumarate [Symbicort 160-4.5 Mcg Meds 06/11/23 10:00 Ordered Inhaler] 2 puff IH Q12H Lisinopril [Zestril] Meds 06/11/23 10:00 Ordered 20 mg PO BID Morphine Sulfate [Morphine 2 mg/ml Syringe] Meds 06/10/23 21:20 Active 2 mg IVP Q4HR PRN Ondansetron HCl/Pf [Zofran 4 mg/2 ml] Meds 06/10/23 21:20 Active 4 mg IVP Q6H PRN Pantoprazole Sodium [Protonix] Meds 06/11/23 10:00 Ordered 40 mg PO QDAY Piperacillin Sodium/Tazobactam [Zosyn 3.375 gm] 3.375 Meds 06/11/23 12:00 Active gm 0.9 % Sodium Chloride [Sodium Chloride 100Ml] 100 ml IV Q6HR Sucralfate Susp [Carafate] Meds 06/11/23 10:00 Ordered 10 ml PO QID
[2023-06-11] MEDS: ZESTRIL PO SCH ×2 (10:24→20:48)
[2023-06-11] MEDS: SYMBICORT 160-4.5 MCG INHALER IH SCH ×2 (10:24→20:40)
[2023-06-11] MEDS: NORVASC PO SCH (10:24)
[2023-06-11] MEDS: LOVENOX SUBCUT SCH (11:02)
--- NOTE | 2023-06-11 13:58 | RS.PTINEVL ---
Subjective Patient information Date of Evaluation: 06/11/23 Date of Arrival on Unit: 06/10/23 Admitted From:: Home Diagnosis: acute diverticulitis Usual Living Arrangement: With Spouse Living Arrangement Comments: Lives with and 2 grandkids Home Environment: House, Stairs (few) and Rail Medical History: Hypertension, COPD and Arthritis Medical History Comments:: barretts esophagus, thoracic ascending aneurysm LATEX ALLERGY?: No Surgical History: Knee Replacement and Hysterectomy Surgical History Comments:: bunionectomy Medications: see chart Subjective Information/ Patient Comments:: pt states that she has been up and in the shower today and did not have any issues. pt does not feel she needs therapy at this time. 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 Current Level of Function: Partially Dependent Current Equipment Used at Home: cane or rwx occasionally. Interventions Objective Patient Orientation: Person, Place, Time and Situation Current Interventions: IV's and Telemetry Observation: pt seen sitting on edge of bed. Range of Motion ROM Right Upper Extremity AROM: WFL's Left Upper Extremity AROM: WFL's Right Lower Extremity AROM: WFL's Left Lower Extremity AROM: WFL's Muscle Strength Muscle Strength Right Upper Extremity: Mild Weakness (grossly 4+/5) Left Upper Extremity: Mild Weakness (grossly 4+/5) Right Lower Extremity: Mild Weakness (hip flex 4/5, knee flex/ext 4+/5, ankle DF/PF 4+/5) Left Lower Extremity: Mild Weakness (hip flex 4/5, knee flex/ext 4+/5, ankle DF/PF 4+/5) Sensation Sensation Right Upper Extremity: Intact/Normal Left Upper Extremity: Intact/Normal Right Lower Extremity: Intact/Normal Left Lower Extremity: Intact/Normal Palpation Palpation Findings: Tenderness (R foot 1st MTP joint) Balance Sitting Balance and Reactions Static Sitting Balance: Normal Dynamic Sitting Balance: Normal Standing Balance and Reactions Static Standing Balance: Good Dynamic Standing Balance: Good Comments Balance Assessment Comments: pt able to bend over and remove socks and put on shoes no LOB. pt also picked up socks from floor to place in chair no LOB. Functional Mobility Bed Mobility Rolling R/L: Independent Scooting: Independent Supine to Sit: Independent Sit to Supine: Independent Transfers Sit to Stand: Supervision Stand to Sit: Supervision Safety Awareness Safety Awareness: Good PRISCILA INDEX SCORE: n/a Ambulation Ambulation Assistive Device Used: Gait belt Orthotic/Prosthetic Device: No Distance: 140ft Assistance needed with Ambulation: Supervision and CGA Gait Deviations: Deviates from path Ambulation Comments: pt occasionally deviates from path. Factors Affecting Ambulation: Weakness Treatment time Time with patient Length of Evaluation: 21 Total treatment time: 29 Patient Education Education Patient Education: Home Safety Teaching Recipient: Patient Teaching Methods: Discussion Assessment Assessment Problem List:: Weakness Rehab Potential: Good Further Therapy Indicated?: No Candidate for Swing Bed for Therapy Services?: Feel pt would not be a candidate for swing bed due to high level of function. Evaluation Complexity: HISTORY: Medium, EXAM OF BODY SYSTEMS: Medium, CLINICAL PRESENTATION: Medium and CLINICAL DECISION MAKING: Medium Patient's Goal(s): Return home Plan Other:: Feel pt does not require skilled PT at this time due to pt high level. Frequency of Treatment: One time treatment Duration of Treatment: One Time Treatment Anticipated Discharge Destination: Home Treatment Diagnosis (ICD 10 Codes): weakness M62.81 Has the Physician been added for Co-signature?: Yes
[2023-06-12 05:02] LABS: BASOPHILS # (AUTO) 0.1 K/uL (0-0.2); BASOPHILS % (AUTO) 0.9 % (0.0-3.0); EOSINOPHILS # (AUTO) 0.3 K/ul (0.0-0.7); EOSINOPHILS % (AUTO) 4.1 % (0.0-7.0); HEMATOCRIT 37.2 % (37.0-47.0); HEMOGLOBIN 11.3 g/dl (12.0-16.0); IMMATURE GRANULOCYTE % (AUTO) 0.3 % (0.0-5.0); LYMPHOCYTES # (AUTO) 2.2 K/uL (0.60-3.4); MEAN CORPUSCULAR HEMOGLOBIN 25.5 pg (27.0-31.0); MEAN CORPUSCULAR HGB CONC 30.4 (31.8-35.4); MEAN CORPUSCULAR VOLUME 83.8 fl (81.0-99.0); MONOCYTES # (AUTO) 0.6 K/uL (0.4-2.0); MONOCYTES % (AUTO) 7.6 (0-10); NEUTROPHILS # (AUTO) 4.4 K/ul (2.0-6.9); NEUTROPHILS % (AUTO) 58.1 % (42.2-75.2); PLATELET COUNT 285 10^3/uL (140-440); RDW COEFFICIENT OF VARIATION 14.8 % (11.6-14.8); RED BLOOD COUNT 4.44 10^6/ul (4.20-5.40); WHITE BLOOD COUNT 7.63 K/ul (4.6-10.2)
[2023-06-12 05:13] LABS: ALANINE AMINOTRANSFERASE 25.1 U/L (0-35); ALBUMIN 3.97 g/dL (3.5-5.0); ALKALINE PHOSPHATASE 91.7 U/L (53-141); ASPARTATE AMINO TRANSFERASE 31.4 U/L (14-36); BILIRUBIN,TOTAL 0.56 mg/dL (0.2-1.3); BLOOD UREA NITROGEN 11.4 mg/dL (7-17); CALCIUM 9.49 mg/dL (8.4-10.2); CARBON DIOXIDE 29.9 mmol/L (22-30.0); CREATININE 0.88 mg/dL (0.60-1.30); GLUCOSE 108.8 mg/dL (74-106); POTASSIUM 4.14 mmol/L (3.5-5.1); SODIUM 140.1 mmol/L (134.5-145); TOTAL PROTEIN 7.17 g/dL (6.3-8.2)
[2023-06-12] MEDS: TYLENOL PO PRN (05:13)
[2023-06-12] MEDS: ZOSYN 3.375 GM 3.375 GM in SODIUM CHLORIDE 100ML 100 ML IV SCH (05:13)
[2023-06-12] MEDS: PROTONIX PO SCH (05:14)
[2023-06-12 05:41] VITALS: BP 135/77; TEMP 98.1
[2023-06-12] MEDS: CARAFATE PO SCH (06:03)
[2023-06-12] MEDS: NORVASC PO SCH (08:48)
[2023-06-12] MEDS: ZESTRIL PO SCH (08:49)
[2023-06-12 08:56] VITALS: PULSE 80; RESP 20
[2023-06-12] MEDS: SYMBICORT 160-4.5 MCG INHALER IH SCH (09:06)
[2023-06-12] MEDS: LOVENOX SUBCUT SCH (09:06)
--- NOTE | 2023-06-12 09:33 | DCSUM ---
Admission Date Admission Date: 06/10/23 Discharge Date Discharge Date: 06/12/23 Admission Diagnosis Admission Diagnosis: 1. Acute diverticulitis of descending colon Discharge Diagnosis Discharge Diagnosis: 1. Acute diverticulitis of descending colon, improved 2. Hypertension, chronic, stable 3. COPD, chronic,st able 4. Barretts esophagus, chronic, stable Hospital Provider Hospital Provider: EMERSON IQBAL [place] [facility] [place] Primary Care Physician: ROLO ERWIN APRN Summary of History and Physical Summary of History and Physical: Patient is a 72 year old female with pmhx of hypertension, Sanchez's esophagus, COPD, HLD, h/o throacic ascending aneurysm who presented to the ER from home with cc of LLQ pain and fever. She's had diverticulitis mulitiple times in the past. She's had LLQ pain for the past few days, felt very weak, nausea, and diarrhea. No blood in stool. Last colonoscopy was last year and normal except for some noncancerous polyps, per patient. In the ER she was found to have 101T, wbc count 16, and CT abd/pelvis showed diverticulitis/colitis of descending colon. She was given zosyn. Pt was also started on fluids. On my evaluation this morning she is feeling better, tolerating clear liquids. She is still having LLQ pain, improved with tylenol. Hospital Course Subjective: Patient was treated with zosyn. PRN zofran, tylenol, and morphine ordered. Started on clear diet. Was able to tolerate and progress to soft diet. On day of discharge patient's LLQ pain had improved significantly. She had a normal BM this morning. No fever in last 24 hours. She feels well enough for discharge to home. Will give augmentin x10 days. F/u with pcp to ensure resolution. Patient agrees to plan of care. Appearance: Pleasant, No Apparent Distress, Alert, Well-appearing and Well- nourished HEENT: MMM CVS: No Murmur Abdomen: Soft, Non-Tender, No Distention and Other (No LLQ tenderness this morning, it has improved ) Respiratory: No Dyspnea Extremities: No Edema Vital Signs: Most Recent Vital Signs Temperature 98.1 F 06/12/23 05:40 Temperature Source Oral 06/12/23 05:40 Temperature Source Oral 06/10/23 21:30 Pulse Rate 80 06/12/23 08:00 Respiratory Rate 20 06/12/23 08:00 Blood Pressure 135/77 06/12/23 05:40 Blood Pressure Mean 96 06/12/23 05:40 Blood Pressure Right Arm 140/79 06/10/23 22:38 Blood Pressure Location Right Arm 06/12/23 05:40 Blood Pressure Position Supine 06/12/23 05:40 O2 Sat by Pulse Oximetry 99 06/12/23 05:40 Oxygen Delivery Method Room Air 06/12/23 08:00 Oxygen Flow Rate 2 06/10/23 21:30 Height 5 ft 7 in 06/10/23 22:38 Weight 225 lb 06/10/23 22:38 Telemetry Type Remote Telemetry 06/12/23 07:00 Telemetry Monitoring Continues 06/12/23 07:00 Telemetry Heart Rate 71 06/12/23 07:00 EKG GA Interval 0.16 06/12/23 07:00 EKG QRS Interval 0.06 06/12/23 07:00 EKG QT Interval 0.38 06/11/23 01:00 Telemetry Strip Reading NSR 06/12/23 07:00 Imaging: EXAM: CT ABDOMEN/PELVIS WITH CONTRAST HISTORY: Left lower quadrant abdominal pain with history of diverticulitis COMPARISON: CT abdomen/pelvis from 04/25/2018 TECHNIQUE: Multi-slice postcontrast transaxial helical images are acquired through the abdomen and pelvis with coronal and sagittal reconstructed images. All CT scans are performed using dose optimization techniques as appropriate to the performed exam and includes at least one of the following: Automated exposure control, adjustment of the mA and/or kV according to size, and the use of iterative reconstruction technique. CONTRAST: None. FINDINGS: Lung bases: There are chronic tree in bud alveolar densities in the left lower lobe. The dependent lungs are atelectatic. A moderate hiatus hernia is noted. Liver: The hepatic attenuation is minimally low diffusely relative to the spleen. Gallbladder/bilary tree: Normal. Pancreas: Normal. Adrenal glands: Normal. Spleen: Normal. Kidneys: A simple acquired left renal cyst is noted. The kidneys are otherwise normal. No hydroureteronephrosis. Retroperitoneum: The aorta is atherosclerotic. No retroperitoneal lymphadenopathy or hematomas. Peritoneum: Normal. Bowel: Diverticula arise from large bowel. There is mucosal prominence and fat stranding adjacent to the descending colon. No drainable fluid collections or free air are associated. The appendix is normal. No intestinal distension. Pelvis: The uterus is surgically absent and there are no adnexal masses. The nonopacified bladder is normal. Addominal wall/bones: No suspicious bone lesions or acute osseous abnormalities. No significant body wall hernias. IMPRESSION: - Colitis and diverticulitis of the descending colon. - Chronic tree in bud alveolar densities in the left lower lobe. - Minimal diffuse hepatic steatosis. - ASCVD. Lab Results Last 24 Hours: 06/12/23 04:44 WBC 7.63 RBC 4.44 Hgb 11.3 L Hct 37.2 MCV 83.8 MCH 25.5 L MCHC 30.4 L RDW Coeff of Opal 14.8 Plt Count 285 Immature Gran % (Auto) 0.3 Neut % (Auto) 58.1 Lymph % (Auto) 29.0 Mckean % (Auto) 7.6 Eos % (Auto) 4.1 Baso % (Auto) 0.9 Neut # (Auto) 4.4 Lymph # (Auto) 2.2 Mckean # (Auto) 0.6 Eos # (Auto) 0.3 Baso # (Auto) 0.1 Immature Gran # (Auto) 0.0 Sodium 140.1 Potassium 4.14 Chloride 106.0 Carbon Dioxide 29.9 Anion Gap 8.34 BUN 11.4 Creatinine 0.88 Estimated GFR (MDRD) 63.00 BUN/Creatinine Ratio 12.95 Glucose 108.8 H Calcium 9.49 Total Bilirubin 0.56 AST 31.4 ALT 25.1 Alkaline Phosphatase 91.7 Total Protein 7.17 Albumin 3.97 Globulin 3.20 Albumin/Globulin Ratio 1.24 Discharge Instructions Discharge Planning: Discharge Planning > [address] Charity Suarez. Discharge Medications: Medications at Discharge (Home Meds & RX) vitamin B complex 1 tab PO QDAY 01/11/22 albuterol sulfate 2.5 mg/3 mL (0.083 %) solution for nebulization 2.5 mg (3 mL) inhalation Q4-6H PRN shortness of breath or wheezing #90 mL 10/30/22 pantoprazole 40 mg tablet,delayed release (Protonix) 40 mg PO QDAY #30 tabs 10/30/22 sucralfate 100 mg/mL oral suspension (Carafate) 10 ml PO QID #1,000 mL 10/30/22 albuterol sulfate 90 mcg/actuation aerosol inhaler (Ventolin HFA) 2 puff inhalation Q4-6H PRN shortness of breath or wheezing #8.5 grams 05/21/23 budesonide-formoterol HFA 160 mcg-4.5 mcg/actuation aerosol inhaler (Symbicort) 2 puff inhalation Q12H #10.2 grams 05/21/23 lisinopril 20 mg tablet 20 mg PO BID 90 days #180 tabs 05/21/23 amlodipine 5 mg tablet See Rx Instructions .Route .COMPLEX #90 tabs 05/22/23 amoxicillin 875 mg-potassium clavulanate 125 mg tablet 1 tab PO BID DIVERTICULITIS 10 days #20 tabs 06/12/23 Discharge Plan Discharge Discharge Orders: Discharge Patient (ONCE); Ordered 06/12/23 Ordered By: EMERSON IQBAL Activity Restrictions/Additional Instructions: DISCHARGE TO HOME DX: DIVERTICULITIS YOU HAVE A FOLLOW UP APPOINTMENT WITH ROLO ERWIN AT THE [facility] ON AT 2:30PM. SHOULD YOU HAVE ANY QUESTIONS OR NEED TO RESCHEDULE YOU CAN CONTACT THEIR OFFICE AT [phone]. DIET: PROGRESS T[facility]ERATED [facility]ARM[facility]Y: [facility] Instructions: Diverticulitis (GEN), Diverticulitis Diet (GEN) Patient Disposition: HOME SELF-CARE Prescriptions: New amoxicillin-pot clavulanate 875-125 mg tablet 1 tab PO BID 10 Days Qty: 20 0RF Continued amlodipine 5 mg tablet See Rx Instructions .ROUTE .COMPLEX Qty: 90 1RF Dose Instruction: TAKE 1 TABLET BY MOUTH DAILY Rx Instructions: TAKE 1 TABLET BY MOUTH DAILY vitamin B complex Tablet 1 tab PO QDAY albuterol sulfate 2.5 mg /3 mL (0.083 %) solution for nebulization 2.5 mg inhalation Q4-6H PRN (Reason: shortness of breath or wheezing) Qty: 90 2RF pantoprazole [Protonix] 40 mg tablet,delayed release (DR/EC) 40 mg PO QDAY Qty: 30 5RF Rx Instructions: dr martine reyes sucralfate [Carafate] 100 mg/mL suspension 10 ml PO QID Qty: 1000 0RF Rx Instructions: swish in mouth and swallow; use after food/drink--dr martine reyes (rx takes over by GI) lisinopril 20 mg tablet 20 mg PO BID 90 Days Qty: 180 1RF budesonide-formoterol [Symbicort] 160-4.5 mcg/actuation HFA aerosol inhaler 2 puff inhalation Q12H Qty: 10.2 5RF albuterol sulfate [Ventolin HFA] 90 mcg/actuation HFA aerosol inhaler 2 puff inhalation Q4-6H PRN (Reason: shortness of breath or wheezing) Qty: 8.5 5RF Did you review [place] DIRECTOR OF PLANNING for ALL controlled substances?: Not Applicable Discussed opioids are addictive and Narcan is available by prescription or from pharmacy.: No Condition: Stable
== END 2023-06-12 11:34 | disposition home or self-care (01) | DRG 392 ==
LOC: ED 17:50 → MEDSURG B 21:53
PROVIDERS: ADMIT Hospitalist; ATTEND Physician Assistant
DX: K51.50 Left sided colitis without complications; E78.5 Hyperlipidemia, unspecified; Z86.010 Personal history of colon polyps; R91.8 Other nonspecific abnormal finding of lung field; Z96.651 Presence of right artificial knee joint; Z79.899 Other long term (current) drug therapy; Z20.822 Contact with and (suspected) exposure to COVID-19; R10.32 Left lower quadrant pain; Z51.81 Encounter for therapeutic drug level monitoring; Z87.891 Personal history of nicotine dependence; I10 Essential (primary) hypertension; K22.70 Barrett's esophagus without dysplasia; Z86.79 Personal history of other diseases of the circulatory system; K57.32 Diverticulitis of large intestine without perforation or abscess without bleeding; J44.9 Chronic obstructive pulmonary disease, unspecified; Z90.710 Acquired absence of both cervix and uterus; M19.90 Unspecified osteoarthritis, unspecified site